=== PATIENT | male | born 1980 | race Two or more races ===

== ENCOUNTER 2017-10-24 01:32 | Inpatient (IN) | payer BC, OTHER ==
[~2017-10-24] VITALS: Ht 172.7 cm; Wt 102.0 kg
[2017-10-24 02:48] LABS: Basophils # (auto) 0 uL; Basophils % (auto) 0.4 % (0.0-2.0); Eosinophils # (auto) 0.1 uL; Hemoglobin 15.8 g/dL (13.5-17.5); Lymphocytes # (auto) 1.5 uL; Lymphocytes % (auto) 13.2 % (10.0-50.0); Mean Corpuscular Hemoglobin 31.5 pg (28.0-32.0); Mean Corpuscular Hgb Conc. 34.4 g/dL (32.0-36.0); Mean Corpuscular Volume 91.5 fL (80.0-100.0); Monocytes # (auto) 0.5 uL; Monocytes % (auto) 4.7 % (0.0-12.0); Neutrophils # (auto) 9.3 uL; Neutrophils % (auto) 80.7 % (37.0-80.0); Platelet Count (auto) 230 10^3/uL (140-450); Red Blood Cells 5.02 10^6/uL (4.5-5.90); White Blood Cell 11.5 10^3/uL (4.4-10.8)
[2017-10-24 03:08] LABS: Alanine Aminotransferase 60 U/L (16-61); Albumin 4.1 g/dL (3.4-5.0); Anion Gap 7 (5-15); Aspartate Aminotransferase 23 U/L (15-37); BUN/Creatinine Ratio 10.8; Blood Urea Nitrogen 14 mg/dL (7-18); Calcium 8.7 mg/dL (8.5-10.1); Carbon Dioxide 25 mmol/L (21-32); Chloride 106 mmol/L (98-107); GFR African American 79 mL/min; GFR Non-African American 66 mL/min; Glucose 165 mg/dL (74-106); Potassium 3.7 mmol/L (3.5-5.1); Sodium 138 mmol/L (136-145)
[2017-10-24 03:13] LABS: Alkaline Phosphatase 109 U/L (45-117); Bilirubin, Total 0.5 mg/dL (0.2-1.0); Total Protein 8.9 g/dL (6.4-8.2)
[2017-10-24 03:54] LABS: Urine Bacteria NONE SEEN /hpf (None Seen); Urine Blood 1+ /uL (Negative); Urine Mucus FEW (None Seen); Urine Specific Gravity 1.017 (1.001-1.035); Urine WBC 3 /hpf (0 - 3)
[2017-10-24] MEDS ORDERED: SODIUM CHLORIDE 0.9% 1,000 ML IV ONE ×3 (04:00→07:45)
[2017-10-24] MEDS ORDERED: ONDANSETRON HCL 4 MG/2 ML VIAL IV ONE (04:00)
[2017-10-24] MEDS ORDERED: HYDROmorphone HCL 2 MG/ML VL IV ONE (04:00)
[2017-10-24] MEDS ORDERED: KETOROLAC TROMETH 30 MG/ML 1ML VIAL IV ONE (04:15)
[2017-10-24] MEDS ORDERED: NITROGLYCERIN 0.4 MG SL TAB SL PRN (08:00)
[2017-10-24] MEDS ORDERED: ACETAMINOPHEN 500 MG TAB PO PRN (08:00)
[2017-10-24] MEDS ORDERED: MORPHINE SULFATE 8mg/ml INJ SDV IV PRN ×2 (08:00)
[2017-10-24] MEDS ORDERED: HYDROcodone-ACET 5/325MG TAB PO PRN (08:00)
[2017-10-24] MEDS ORDERED: TEMAZEPAM 15 MG CAP PO PRN (08:00)
[2017-10-24] MEDS ORDERED: LORazepam 0.5 MG TAB PO PRN (08:00)
[2017-10-24] MEDS ORDERED: PROMETHAZINE HCL 25 MG/ML 1ML IV PRN (08:00)
[2017-10-24] MEDS: SODIUM CHLORIDE 0.9% 1,000 ML IV SCH ×2 (09:00→18:10)
[2017-10-24] MEDS ORDERED: DEXTROSE (50%) 50ML SYRG IV PRN (09:45)
[2017-10-24] MEDS: cefTRIAXone 1GM/10ml IVPUSH 10 ML IV SCH (09:50)
[2017-10-24] MEDS: FAMOTIDINE 20 MG TAB PO SCH ×2 (11:14→21:46)
[2017-10-24] MEDS ORDERED: KETOROLAC TROMETH 30 MG/ML 1ML VIAL IV PRN (12:45)
[2017-10-24] MEDS ORDERED: MANNITOL 20 % (20GM/100ML) 62.5 ML IV ONE (12:45)
[2017-10-24] MEDS: ACCU-CHEK COMFORT CURVE STRIP VI SCH ×2 (12:54→18:10)
[2017-10-24] MEDS: TAMSULOSIN HYDROCHLORIDE 0.4 MG CAP PO SCH (18:10)
[2017-10-24 21:32] VITALS: BP 139/67
[2017-10-25] MEDS: ACCU-CHEK COMFORT CURVE STRIP VI SCH ×4 (00:11→18:00)
[2017-10-25] MEDS: SODIUM CHLORIDE 0.9% 1,000 ML IV SCH ×2 (04:22→15:08)
[2017-10-25 04:59] VITALS: BP 133/75
[2017-10-25 06:52] LABS: Basophils # (auto) 0 uL; Basophils % (auto) 0.5 % (0.0-2.0); Eosinophils # (auto) 0.2 uL; Hematocrit 42.1 % (41.0-53.0); Hemoglobin 14.6 g/dL (13.5-17.5); Lymphocytes % (auto) 25.1 % (10.0-50.0); Mean Corpuscular Hemoglobin 31.8 pg (28.0-32.0); Mean Corpuscular Hgb Conc. 34.6 g/dL (32.0-36.0); Mean Corpuscular Volume 91.9 fL (80.0-100.0); Monocytes # (auto) 0.6 uL; Monocytes % (auto) 8.1 % (0.0-12.0); Neutrophils # (auto) 5.1 uL; Neutrophils % (auto) 64.3 % (37.0-80.0); Nucleated Red Blood Cells % 0.1 %; Platelet Count (auto) 194 10^3/uL (140-450); Red Blood Cells 4.58 10^6/uL (4.5-5.90)
[2017-10-25 08:00] VITALS: BP 136/91
[2017-10-25] MEDS: cefTRIAXone 1GM/10ml IVPUSH 10 ML IV SCH (09:44)
[2017-10-25 12:00] VITALS: BP 149/89
[2017-10-25] MEDS: FAMOTIDINE 20 MG TAB PO SCH (12:02)
[2017-10-25] MEDS ORDERED: THROAT LOZENGES(CEPASTAT) MT PRN (15:00)
[2017-10-25 16:46] VITALS: BP 141/99
[2017-10-25] MEDS: TAMSULOSIN HYDROCHLORIDE 0.4 MG CAP PO SCH (17:52)
== END 2017-10-25 18:21 | disposition home or self-care (01) | DRG 694 ==
LOC: ER 01:33 → TELE 01:34 → TELE-WESTW 18:30
PROVIDERS: ADMIT Internal Medicine; ATTEND Internal Medicine
DX: N13.2 Hydronephrosis with renal and ureteral calculous obstruction (principal); F41.9 Anxiety disorder, unspecified; N39.0 Urinary tract infection, site not specified; R73.9 Hyperglycemia, unspecified; Z82.49 Family history of ischemic heart disease and other diseases of the circulatory system; Z83.3 Family history of diabetes mellitus; Z87.442 Personal history of urinary calculi
CPT/HCPCS: 36415; 74176; 80053; 81001; 82962; 83036; 84484; 85025; 87086; 96361; 96374; 96375; J1885; J2270; J2405

== ENCOUNTER 2022-02-18 01:50 | Inpatient (IN) | payer BC, OTHER ==
[~2022-02-18] VITALS: Ht 172.7 cm; Wt 104.5 kg
[2022-02-18] MEDS ORDERED: amLODIPine BESYLATE 5 MG TAB PO ONE (02:15)
[2022-02-18 02:55] LABS: Basophils # (auto) 0 10 ^3/uL (0-0.2); Basophils % (auto) 0.2 % (0.0-2.0); Eosinophils # (auto) 0 10 ^3/uL (0-0.8); Hemoglobin 15.9 g/dL (13.5-17.5); Lymphocytes # (auto) 0.8 10 ^3/uL (0.4-5.4); Lymphocytes % (auto) 4.2 % (10.0-50.0); Mean Corpuscular Hemoglobin 30.9 pg (28.0-32.0); Mean Corpuscular Hgb Conc. 33.9 g/dL (32.0-36.0); Mean Corpuscular Volume 91.2 fL (80.0-100.0); Monocytes # (auto) 0.2 10 ^3/uL (0-1.3); Monocytes % (auto) 1.2 % (0.0-12.0); Neutrophils # (auto) 16.9 10 ^3/uL (1.6-8.6); Neutrophils % (auto) 94.4 % (37.0-80.0); Red Blood Cells 5.16 10^6/uL (4.5-5.90); White Blood Cell 17.9 10^3/uL (4.4-10.8)
[2022-02-18 03:16] LABS: BUN/Creatinine Ratio 12.3; Calcium 9.6 mg/dL (8.5-10.1); Potassium 4.6 mmol/L (3.5-5.1)
[2022-02-18 03:26] LABS: Bilirubin, Total 0.3 mg/dL (0.2-1.0); Total Protein 8.7 g/dL (6.4-8.2)
[2022-02-18] MEDS ORDERED: MORPHINE SULFATE 4 MG/ML SYR/VIAL IV ONE (04:45)
[2022-02-18] MEDS ORDERED: InsuLIN REG 1unit/0.01ml Soln (100units/ml) IV ONE (05:15)
[2022-02-18] MEDS ORDERED: ASPirin 81 mg TAB PO ONE (05:15)
[2022-02-18] MEDS ORDERED: SODIUM CHLORIDE 0.9% 1,000 ML IV ONE (05:15)
[2022-02-18] MEDS ORDERED: DEXTROSE (50%) 50ML SYRG IV PRN (08:15)
[2022-02-18] MEDS ORDERED: HYDROcodone-ACET 5/325MG TAB PO PRN (08:15)
[2022-02-18] MEDS ORDERED: LORazepam 0.5 MG TAB PO PRN (08:15)
[2022-02-18] MEDS ORDERED: NITROGLYCERIN 0.4 MG SL TAB SL PRN (08:15)
[2022-02-18] MEDS ORDERED: HEPARIN DRIP/D5W 100UNITS/ML 250 ML IV SCH ×2 (08:15→21:00)
[2022-02-18] MEDS ORDERED: ACETAMINOPHEN 325 MG TAB PO PRN (08:15)
[2022-02-18] MEDS ORDERED: ALUM & MAG HYDROX-SIMETH LIQ(MAALOX) 30 ML PO PRN (08:15)
[2022-02-18] MEDS ORDERED: MORPHINE SULFATE INJ 2 MG/ml SYRG IV PRN ×2 (08:15)
[2022-02-18] MEDS ORDERED: HEPARIN SODIUM (PORCINE) 5000 UNITS/ML 1ML VIAL IV ONE ×2 (08:15→09:00)
[2022-02-18] MEDS ORDERED: ONDANSETRON HCL 4 MG/2 ML VIAL IV PRN (08:15)
[2022-02-18] MEDS ORDERED: DOCUSATE SOD 100 MG CAP PO PRN (08:15)
[2022-02-18] MEDS: SODIUM CHLORIDE 0.9% 1,000 ML IV SCH (08:36)
[2022-02-18 08:48] LABS: Basophils # (auto) 0.1 10 ^3/uL (0-0.2); Basophils % (auto) 0.3 % (0.0-2.0); Eosinophils # (auto) 0 10 ^3/uL (0-0.8); Hematocrit 42.8 % (41.0-53.0); Hemoglobin 14.5 g/dL (13.5-17.5); Lymphocytes # (auto) 1.3 10 ^3/uL (0.4-5.4); Lymphocytes % (auto) 6.5 % (10.0-50.0); Mean Corpuscular Hemoglobin 30.3 pg (28.0-32.0); Mean Corpuscular Hgb Conc. 33.8 g/dL (32.0-36.0); Mean Corpuscular Volume 89.7 fL (80.0-100.0); Monocytes # (auto) 0.6 10 ^3/uL (0-1.3); Monocytes % (auto) 3.1 % (0.0-12.0); Neutrophils # (auto) 17.6 10 ^3/uL (1.6-8.6); Neutrophils % (auto) 90.1 % (37.0-80.0); Red Blood Cells 4.78 10^6/uL (4.5-5.90); Red Cell Distribution Width 12.7 % (11.8-14.3); White Blood Cell 19.6 10^3/uL (4.4-10.8)
[2022-02-18 09:11] LABS: Cholesterol 209 mg/dL (< 200); HDL Cholesterol 44 mg/dL (40-59); LDL Cholesterol 147 mg/dL (< 100); Triglycerides 120 mg/dL (< 150)
[2022-02-18 09:31] LABS: INR 1.05 (0.9-1.15); Partial Thromboplastin Time 26.3 sec (24.6-33.4)
[2022-02-18] MEDS ORDERED: LISINOPRIL 5 MG TAB PO SCH (10:00)
[2022-02-18] MEDS: ATORVASTATIN 20 MG TAB PO SCH (10:38)
[2022-02-18] MEDS: cefTRIAXone 1GM/50ML D5W 50 ML IV SCH (10:39)
[2022-02-18] MEDS: CARVEDILOL 3.125 MG TAB PO SCH ×2 (10:39→23:23)
[2022-02-18 11:20] LABS: Alcohol, Urine < 3.0 mg/dL (0-10); Amphetamine Screen, Urine NEGATIVE (NEGATIVE); Barbiturate Scree,Urine NEGATIVE (NEGATIVE); Benzodiazephine Screen, Urine NEGATIVE (NEGATIVE); Cannabinoid Screen, Urine NEGATIVE (NEGATIVE); Cocaine Screen, Urine NEGATIVE (NEGATIVE); Opiate Scree,Urine NEGATIVE (NEGATIVE); Phencyclidine Screen, Urine NEGATIVE (NEGATIVE)
[2022-02-18] MEDS: InsuLIN REG 1unit/0.01ml Soln (100units/ml) SC SCH ×3 (11:24→23:26)
[2022-02-18] MEDS: ACCU-CHEK COMFORT CURVE STRIP VI SCH ×3 (11:26→22:00)
[2022-02-18 11:38] LABS: Urine Bacteria NONE SEEN /hpf (None Seen); Urine Blood 3+ /uL (Negative); Urine Specific Gravity 1.039 (1.001-1.035); Urine WBC 3 /hpf (0 - 3)
[2022-02-18] MEDS ORDERED: MIDAZOLAM HCL 2MG/2ML 2ml VIAL (1mg/ml) ONE (15:47)
[2022-02-18] MEDS ORDERED: VERAPAMIL 2.5MG/ML INJ 2ML VIAL IV ONE (15:47)
[2022-02-18] MEDS ORDERED: fentaNYL CITRATE 100 MCG/2 ML VL ONE (15:47)
[2022-02-18] MEDS ORDERED: ANGIOMAX 250 MG VIAL IV ONE (15:47)
[2022-02-18] MEDS ORDERED: HEPARIN SODIUM (PORCINE) 5000 UNITS/ML 1ML VIAL ONE (15:47)
[2022-02-18] MEDS ORDERED: SODIUM CHL 0.9% 0 ML ONE (15:48)
[2022-02-18] MEDS ORDERED: LIDOCAINE 2%HCL (LOCAL ANESTH.) INJ 20ML MDV ONE (15:49)
[2022-02-18] MEDS ORDERED: IODIXANOL 320MG/ML 100ML BTL IV ONE (15:49)
[2022-02-18 16:29] VITALS: BP 123/84
[2022-02-18 16:42] VITALS: BP 116/78
[2022-02-18 16:57] VITALS: BP 122/70
[2022-02-18 17:12] VITALS: BP 102/69
[2022-02-18] MEDS ORDERED: LISI20TA28 PO (18:34)
[2022-02-18 19:00] VITALS: BP 139/84
[2022-02-18 19:39] LABS: INR 1.07 (0.9-1.15); Partial Thromboplastin Time 37.6 sec (24.6-33.4)
[2022-02-18 19:51] LABS: BUN/Creatinine Ratio 18.3; Calcium 8.7 mg/dL (8.5-10.1); Potassium 4.3 mmol/L (3.5-5.1)
[2022-02-18 20:00] VITALS: BP 139/84
[2022-02-19] VITALS (7 sets, daily range): BP systolic 127–148; BP diastolic 83–95
[2022-02-19] MEDS: SODIUM CHLORIDE 0.9% 1,000 ML IV SCH ×2 (00:55→17:35)
[2022-02-19 04:04] LABS: Basophils # (auto) 0.1 10 ^3/uL (0-0.2); Basophils % (auto) 0.3 % (0.0-2.0); Eosinophils # (auto) 0 10 ^3/uL (0-0.8); Eosinophils % (auto) 0.1 % (0.0-7.0); Hemoglobin 13.7 g/dL (13.5-17.5); Lymphocytes # (auto) 2.4 10 ^3/uL (0.4-5.4); Lymphocytes % (auto) 12.8 % (10.0-50.0); Mean Corpuscular Hemoglobin 29.9 pg (28.0-32.0); Mean Corpuscular Hgb Conc. 33.5 g/dL (32.0-36.0); Mean Corpuscular Volume 89.1 fL (80.0-100.0); Monocytes # (auto) 0.9 10 ^3/uL (0-1.3); Monocytes % (auto) 4.9 % (0.0-12.0); Neutrophils # (auto) 15.4 10 ^3/uL (1.6-8.6); Neutrophils % (auto) 81.9 % (37.0-80.0); Nucleated Red Blood Cells % 0.1 %; Red Cell Distribution Width 13.1 % (11.8-14.3); White Blood Cell 18.9 10^3/uL (4.4-10.8)
[2022-02-19 04:20] LABS: INR 1.07 (0.9-1.15); Partial Thromboplastin Time 32.2 sec (24.6-33.4)
[2022-02-19 04:27] LABS: BUN/Creatinine Ratio 24.7; Calcium 8.1 mg/dL (8.5-10.1); Potassium 3.8 mmol/L (3.5-5.1)
[2022-02-19] MEDS ORDERED: HEPARIN DRIP/D5W 100UNITS/ML 250 ML IV SCH (04:45)
[2022-02-19] MEDS ORDERED: HEPARIN SODIUM (PORCINE) 5000 UNITS/ML 1ML VIAL IV ONE (04:45)
[2022-02-19] MEDS: ACCU-CHEK COMFORT CURVE STRIP VI SCH ×4 (06:31→22:20)
[2022-02-19] MEDS: InsuLIN REG 1unit/0.01ml Soln (100units/ml) SC SCH ×4 (06:31→22:21)
[2022-02-19 09:07] LABS: INR 1.08 (0.9-1.15); Partial Thromboplastin Time 65.5 sec (24.6-33.4)
[2022-02-19] MEDS: CARVEDILOL 3.125 MG TAB PO SCH ×2 (09:23→21:35)
[2022-02-19] MEDS: cefTRIAXone 1GM/50ML D5W 50 ML IV SCH (09:23)
[2022-02-19] MEDS: ATORVASTATIN 20 MG TAB PO SCH (09:23)
[2022-02-19 16:20] LABS: INR 1.05 (0.9-1.15); Partial Thromboplastin Time 48.1 sec (24.6-33.4)
[2022-02-19] MEDS: HEPARIN DRIP/D5W 100UNITS/ML 250 ML IV SCH ×2 (16:44→16:47)
[2022-02-19] MEDS ORDERED: INSULIN LANTUS (GLARGINE) 1 /0.01ml (100units/ml) SC SCH (22:00)
[2022-02-20 00:23] LABS: INR 1.03 (0.9-1.15); Partial Thromboplastin Time 26.4 sec (24.6-33.4)
[2022-02-20] MEDS ORDERED: HEPARIN DRIP/D5W 100UNITS/ML 250 ML IV SCH ×2 (01:00→10:20)
[2022-02-20] MEDS ORDERED: HEPARIN SODIUM (PORCINE) 5000 UNITS/ML 1ML VIAL IV ONE (01:00)
[2022-02-20 05:00] VITALS: BP 148/85
[2022-02-20] MEDS: ACCU-CHEK COMFORT CURVE STRIP VI SCH ×3 (06:31→17:12)
[2022-02-20] MEDS: InsuLIN REG 1unit/0.01ml Soln (100units/ml) SC SCH ×3 (06:32→17:13)
[2022-02-20 06:48] LABS: Basophils # (auto) 0 10 ^3/uL (0-0.2); Basophils % (auto) 0.4 % (0.0-2.0); Eosinophils # (auto) 0.1 10 ^3/uL (0-0.8); Eosinophils % (auto) 1.3 % (0.0-7.0); Hematocrit 44.6 % (41.0-53.0); Hemoglobin 15.1 g/dL (13.5-17.5); Lymphocytes # (auto) 3.5 10 ^3/uL (0.4-5.4); Lymphocytes % (auto) 35.5 % (10.0-50.0); Mean Corpuscular Hgb Conc. 33.8 g/dL (32.0-36.0); Mean Corpuscular Volume 88.7 fL (80.0-100.0); Monocytes # (auto) 0.7 10 ^3/uL (0-1.3); Monocytes % (auto) 6.8 % (0.0-12.0); Neutrophils # (auto) 5.6 10 ^3/uL (1.6-8.6); Nucleated Red Blood Cells % 0.1 %; Red Blood Cells 5.02 10^6/uL (4.5-5.90); Red Cell Distribution Width 12.8 % (11.8-14.3)
[2022-02-20 07:12] LABS: Alanine Aminotransferase 105 U/L (16-61); Albumin 3.4 g/dL (3.4-5.0); Alkaline Phosphatase 101 U/L (45-117); Anion Gap 8 (5-15); Aspartate Aminotransferase 42 U/L (15-37); BUN/Creatinine Ratio 16.3; Bilirubin, Total 0.4 mg/dL (0.2-1.0); Blood Urea Nitrogen 16 mg/dL (7-18); Calcium 8.3 mg/dL (8.5-10.1); Carbon Dioxide 24 mmol/L (21-32); Chloride 106 mmol/L (98-107); GFR African American 107 mL/min; GFR Non-African American 89 mL/min; Glucose 145 mg/dL (74-106); Potassium 3.6 mmol/L (3.5-5.1); Sodium 138 mmol/L (136-145); Total Protein 7.3 g/dL (6.4-8.2)
[2022-02-20 09:10] LABS: INR 1.07 (0.9-1.15)
[2022-02-20 09:14] LABS: Partial Thromboplastin Time > 139.0 sec (24.6-33.4)
[2022-02-20] MEDS: cefTRIAXone 1GM/50ML D5W 50 ML IV SCH (09:33)
[2022-02-20] MEDS: CARVEDILOL 3.125 MG TAB PO SCH (09:33)
[2022-02-20] MEDS: ATORVASTATIN 20 MG TAB PO SCH (09:33)
[2022-02-20] MEDS ORDERED: LISINOPRIL 5 MG TAB PO SCH (10:00)
[2022-02-20] MEDS: SODIUM CHLORIDE 0.9% 1,000 ML IV SCH (10:15)
[2022-02-20 13:00] VITALS: BP 137/93
[2022-02-20 14:33] VITALS: BP 134/86
[2022-02-20 16:48] LABS: INR 1.03 (0.9-1.15); Partial Thromboplastin Time 60.4 sec (24.6-33.4)
[2022-02-20 17:00] VITALS: BP 133/84
== END 2022-02-20 19:13 | disposition short-term general hospital (02) | DRG 190 ==
LOC: ER 01:50 → TELE 08:18 → TELE-WESTW 17:45
PROVIDERS: ADMIT Family Medicine; ATTEND Family Medicine
PROC: B211YZZ Fluoroscopy of Multiple Coronary Arteries using Other Contrast (ICD-10-PCS; principal; 2022-02-18)
DX: I21.4 Non-ST elevation (NSTEMI) myocardial infarction (principal); N17.9 Acute kidney failure, unspecified; R65.10 Systemic inflammatory response syndrome (SIRS) of non-infectious origin without acute organ dysfunction; E11.22 Type 2 diabetes mellitus with diabetic chronic kidney disease; E11.65 Type 2 diabetes mellitus with hyperglycemia; E66.9 Obesity, unspecified; I16.1 Hypertensive emergency; H53.8 Other visual disturbances; R74.01 Elevation of levels of liver transaminase levels; I12.9 Hypertensive chronic kidney disease with stage 1 through stage 4 chronic kidney disease, or unspecified chronic kidney disease; N18.9 Chronic kidney disease, unspecified; I25.10 Atherosclerotic heart disease of native coronary artery without angina pectoris; Z20.822 Contact with and (suspected) exposure to COVID-19; Z68.34 Body mass index [BMI] 34.0-34.9, adult; Z82.49 Family history of ischemic heart disease and other diseases of the circulatory system; Z87.442 Personal history of urinary calculi; Z79.899 Other long term (current) drug therapy
CPT/HCPCS: 36415; 71045; 80048; 80053; 80061; 80307; 81001; 82962; 83036; 84443; 84484; 85025; 85610; 85730; 87040; 87086; 93005; 93306; 96361; 96365; 96375; 96376; 99152; G0378; J0696; J1815; J2250; Q9967

== ENCOUNTER 2022-05-01 22:09 | Inpatient (IN) | payer OTHER ==
[~2022-05-01] VITALS: Ht 167.6 cm; Wt 93.6 kg
[~2022-05-01 22:09] MED LIST: LISI20TA28 PO
[2022-05-01 23:24] LABS: Basophils # (auto) 0 10 ^3/uL (0-0.2); Basophils % (auto) 0.4 % (0.0-2.0); Eosinophils # (auto) 0.2 10 ^3/uL (0-0.8); Eosinophils % (auto) 1.9 % (0.0-7.0); Hematocrit 44.9 % (41.0-53.0); Hemoglobin 15.3 g/dL (13.5-17.5); Lymphocytes # (auto) 1.8 10 ^3/uL (0.4-5.4); Lymphocytes % (auto) 17.4 % (10.0-50.0); Mean Corpuscular Hemoglobin 29.9 pg (28.0-32.0); Mean Corpuscular Hgb Conc. 34.1 g/dL (32.0-36.0); Mean Corpuscular Volume 87.9 fL (80.0-100.0); Monocytes # (auto) 0.7 10 ^3/uL (0-1.3); Monocytes % (auto) 6.6 % (0.0-12.0); Neutrophils # (auto) 7.6 10 ^3/uL (1.6-8.6); Neutrophils % (auto) 73.7 % (37.0-80.0); Nucleated Red Blood Cells % 0.1 %; Red Cell Distribution Width 13.2 % (11.8-14.3); White Blood Cell 10.4 10^3/uL (4.4-10.8)
[2022-05-01] MEDS ORDERED: ASPirin 325 MG TAB PO ONE (23:30)
[2022-05-01] MEDS ORDERED: MORPHINE SULFATE 4 MG/ML SYR/VIAL IV ONE (23:30)
[2022-05-01] MEDS ORDERED: ONDANSETRON HCL 4 MG/2 ML VIAL IV ONE (23:30)
[2022-05-01 23:41] LABS: Albumin 3.7 g/dL (3.4-5.0); BUN/Creatinine Ratio 12.1; Calcium 8.5 mg/dL (8.5-10.1); INR 0.96 (0.9-1.15); Partial Thromboplastin Time 27.4 sec (24.6-33.4); Potassium 3.8 mmol/L (3.5-5.1)
[2022-05-01 23:43] LABS: Bilirubin, Total 0.4 mg/dL (0.2-1.0); Total Protein 7.7 g/dL (6.4-8.2)
[2022-05-02] MEDS ORDERED: TEMAZEPAM 15 MG CAP PO PRN (06:45)
[2022-05-02] MEDS ORDERED: ACETAMINOPHEN 325 MG TAB PO PRN (06:45)
[2022-05-02] MEDS ORDERED: cloNIDine HCL 0.1 MG TAB PO PRN (06:45)
[2022-05-02] MEDS ORDERED: ONDANSETRON HCL 4 MG/2 ML VIAL IV PRN (06:45)
[2022-05-02] MEDS ORDERED: DEXTROSE (50%) 50ML SYRG IV PRN (06:45)
[2022-05-02] MEDS: InsuLIN REG 1unit/0.01ml Soln (100units/ml) SC SCH ×2 (07:00→22:00)
[2022-05-02] MEDS: ACCU-CHEK COMFORT CURVE STRIP VI SCH ×2 (07:00→22:00)
[2022-05-02] MEDS ORDERED: NITROGLYCERIN 0.4 MG SL TAB SL PRN (15:15)
[2022-05-02] MEDS ORDERED: MORPHINE SULFATE INJ 2 MG/ml SYRG IV PRN (15:15)
[2022-05-02] MEDS ORDERED: ONDANSETRON HCL 4 MG/2 ML VIAL IV ONE (21:00)
[2022-05-02] MEDS ORDERED: MORPHINE SULFATE 4 MG/ML SYR/VIAL IV ONE (21:00)
[2022-05-03] MEDS: InsuLIN REG 1unit/0.01ml Soln (100units/ml) SC SCH ×6 (07:00→22:00)
[2022-05-03 07:07] LABS: Calcium 9.2 mg/dL (8.5-10.1); Potassium 3.8 mmol/L (3.5-5.1)
[2022-05-03 07:09] LABS: BUN/Creatinine Ratio 13.1
[2022-05-03 07:38] LABS: Basophils # (auto) 0.1 10 ^3/uL (0-0.2); Basophils % (auto) 0.7 % (0.0-2.0); Eosinophils # (auto) 0.2 10 ^3/uL (0-0.8); Eosinophils % (auto) 2.1 % (0.0-7.0); Hemoglobin 14.5 g/dL (13.5-17.5); Lymphocytes # (auto) 2.2 10 ^3/uL (0.4-5.4); Lymphocytes % (auto) 23.7 % (10.0-50.0); Mean Corpuscular Hemoglobin 29.8 pg (28.0-32.0); Mean Corpuscular Hgb Conc. 33.7 g/dL (32.0-36.0); Mean Corpuscular Volume 88.2 fL (80.0-100.0); Monocytes # (auto) 0.9 10 ^3/uL (0-1.3); Monocytes % (auto) 9.7 % (0.0-12.0); Neutrophils # (auto) 5.8 10 ^3/uL (1.6-8.6); Neutrophils % (auto) 63.8 % (37.0-80.0); Nucleated Red Blood Cells % 0.1 %; Red Blood Cells 4.88 10^6/uL (4.5-5.90); Red Cell Distribution Width 13.3 % (11.8-14.3); White Blood Cell 9.1 10^3/uL (4.4-10.8)
[2022-05-03] MEDS: ASPirin 81 mg TAB PO SCH ×2 (07:49→12:06)
[2022-05-03] MEDS: ENOXAPARIN SOD 40 MG/0.4 ML SYRINGE SC SCH ×2 (07:49→12:07)
[2022-05-03] MEDS: METOPROLOL TARTRATE 25 MG TAB PO SCH ×6 (07:49→22:26)
[2022-05-03] MEDS: ATORVASTATIN 20 MG TAB PO SCH ×2 (07:50→22:25)
[2022-05-03] MEDS: ACCU-CHEK COMFORT CURVE STRIP VI SCH ×6 (07:50→22:26)
[2022-05-04] VITALS (8 sets, daily range): BP systolic 105–163; BP diastolic 49–123
[2022-05-04] MEDS ORDERED: ATOR40TA52 PO (03:30)
[2022-05-04] MEDS ORDERED: MET25T PO (03:30)
[2022-05-04] MEDS ORDERED: ASPI1TAB37 PO (03:30)
[2022-05-04] MEDS ORDERED: ASPI1CHW5 PO (03:30)
[2022-05-04] MEDS ORDERED: METF-370 PO (03:35)
[2022-05-04] MEDS: InsuLIN REG 1unit/0.01ml Soln (100units/ml) SC SCH ×4 (06:29→22:53)
[2022-05-04] MEDS: ACCU-CHEK COMFORT CURVE STRIP VI SCH ×4 (06:35→22:53)
[2022-05-04] MEDS: ASPirin 81 mg TAB PO SCH (08:35)
[2022-05-04] MEDS: ENOXAPARIN SOD 40 MG/0.4 ML SYRINGE SC SCH (08:35)
[2022-05-04] MEDS: METOPROLOL TARTRATE 25 MG TAB PO SCH ×2 (10:58→22:53)
[2022-05-04] MEDS ORDERED: RANO500T PO (16:08)
[2022-05-04] MEDS: ATORVASTATIN 20 MG TAB PO SCH (22:52)
[2022-05-05 05:00] VITALS: BP 135/100
[2022-05-05] MEDS: ACCU-CHEK COMFORT CURVE STRIP VI SCH ×2 (06:14→11:30)
[2022-05-05] MEDS: InsuLIN REG 1unit/0.01ml Soln (100units/ml) SC SCH ×2 (06:14→12:56)
[2022-05-05 09:00] VITALS: BP 143/90
[2022-05-05] MEDS: ASPirin 81 mg TAB PO SCH (09:44)
[2022-05-05] MEDS: METOPROLOL TARTRATE 25 MG TAB PO SCH (09:45)
[2022-05-05] MEDS: ENOXAPARIN SOD 40 MG/0.4 ML SYRINGE SC SCH (09:45)
== END 2022-05-05 15:27 | disposition home or self-care (01) | DRG 198 ==
LOC: ER 22:10 → TELE 05-02 15:03 → TELE-WESTW 05-03 22:40
PROVIDERS: ADMIT Nurse Practitioner Family; ATTEND Internal Medicine
DX: I25.110 Atherosclerotic heart disease of native coronary artery with unstable angina pectoris (principal); E11.9 Type 2 diabetes mellitus without complications; E78.5 Hyperlipidemia, unspecified; Z20.822 Contact with and (suspected) exposure to COVID-19; I10 Essential (primary) hypertension; I25.2 Old myocardial infarction; Z95.1 Presence of aortocoronary bypass graft; Z82.49 Family history of ischemic heart disease and other diseases of the circulatory system; Z87.442 Personal history of urinary calculi; Z79.899 Other long term (current) drug therapy
CPT/HCPCS: 36415; 71045; 71275; 80048; 80053; 82962; 83735; 83880; 84484; 85025; 85610; 85730; 87426; 93005; 93306; G0378; J1815